=== PATIENT | male | born 1960 | race Caucasian/White ===

== ENCOUNTER 2018-01-02 19:17 | Emergency (ER) | payer BC, MEDICARE ==
[2018-01-02 23:02] LABS: ANION GAP 16.4
--- NOTE | 2018-01-02 23:20 | EDM.PDOC ---
ED HPI GENERAL MEDICAL PROBLEM - General Chief Complaint: General Stated Complaint: GOUT [id number] Time Seen by Provider: 01/02/18 23:15 Source of Information: Reports: Patient History Limitations: Reports: No Limitations - History of Present Illness INITIAL COMMENTS - FREE TEXT/NARRATIVE: just started gout attack this Friday saw PMD and Tx with pred which made him nauseous, states on kidney transplant list and unable to take NSAIDS. has oxy already and can take those. was told my PMD his blood count was low. 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) Right Feet Pain Score (Numeric/FACES): 1 - Related Data Allergies Allergy/AdvReac Type Severity Reaction Status Date / Time No Known Allergies Allergy Verified 01/02/18 20:44 Home Meds: Home Meds Calcitriol 0.25 mg PO DAILY 01/02/18 [History] Famotidine 20 mg PO DAILY 01/02/18 [History] Hydrocodone/Acetaminophen [Hydrocodon-Acetaminophen 5-325] 1 tab PO Q6HR PRN [History] Isosorbide Dinitrate 10 mg PO TID 01/02/18 [History] Levothyroxine 75 mcg PO DAILY 01/02/18 [History] Metoprolol Tartrate 25 mg PO BID 01/02/18 [History] Sennosides/Docusate Sodium [Senna-Docusate Sodium] 1 tab PO DAILY 01/02/18 [ History] amLODIPine [Norvasc] 5 mg PO DAILY 01/02/18 [History] methylPREDNISolone [Methylprednisolone] 4 mg PO DAILY 01/02/18 [History] Past Medical History HEENT History: Reports: None Cardiovascular History: Reports: None Respiratory History: Reports: None Gastrointestinal History: Reports: Cholelithiasis, Chronic Constipation Genitourinary History: Reports: Other (See Below) Other Genitourinary History: polycystic kidney Musculoskeletal History: Reports: None Neurological History: Reports: None Psychiatric History: Reports: None Endocrine/Metabolic History: Reports: Hypothyroidism Hematologic History: Reports: None Immunologic History: Reports: None Oncologic (Cancer) History: Reports: None Dermatologic History: Reports: None - Infectious Disease History Infectious Disease History: Reports: Chicken Pox, Mumps - Past Surgical History GI Surgical History: Reports: Colonoscopy Social & Family History - Family History Family Medical History: Noncontributory - Tobacco Use Smoking Status *Q: Never Smoker Second Hand Smoke Exposure: No - Caffeine Use Caffeine Use: Reports: Soda - Recreational Drug Use Recreational Drug Use: No ED ROS GENERAL - Review of Systems Review Of Systems: ROS reveals no pertinent complaints other than HPI. ED EXAM, GENERAL - Physical Exam Exam: See Below Exam Limited By: No Limitations General Appearance: Alert, WD/WN, Mild Distress, Other (right big toe pain) Ears: Hearing Grossly Normal Throat/Mouth: Normal Voice, No Airway Compromise Head: Atraumatic Neck: Non-Tender, Full Range of Motion Respiratory/Chest: No Respiratory Distress Cardiovascular: Regular Rate, Rhythm GI/Abdominal: Soft, Non-Tender Extremities: Other (right big toe swollen red tender) Neurological: Alert, Oriented, Normal Cognition, Normal Gait, No Motor/Sensory Deficits Psychiatric: Normal Affect, Normal Mood Skin Exam: Warm, Dry, Normal Color Lymphatic: No Adenopathy Course - Vital Signs Last Recorded V/S: Last Vital Signs Temp 37.3 C 01/02/18 22:59 Pulse 76 01/02/18 22:59 Resp 16 01/02/18 22:59 BP 135/86 01/02/18 22:59 Pulse Ox 97 01/02/18 22:59 - Orders/Labs/Meds Labs: Laboratory Tests 01/02/18 01/02/18 Range/Units 22:36 22:36 WBC 16.0 H (5.0-10.0) 10^3/uL RBC 4.64 (4.6-6.2) 10^6/uL Hgb 13.4 L (14.0-18.0) g/dL Hct 39.3 L (40.0-54.0) % MCV 84.7 (80-100) fL MCH 28.9 (27.0-34.0) pg MCHC 34.1 (33.0-35.0) g/dL Plt Count 414 (150-450) 10^3/uL Neut % (Auto) 84.6 H (42.2-75.2) % Lymph % (Auto) 9.1 L (20.5-50.1) % Lipscomb % (Auto) 5.7 (2-8) % Eos % (Auto) 0.3 L (1.0-3.0) % Baso % (Auto) 0.3 (0.0-1.0) % Sodium 137 (135-145) mmol/L Potassium 4.4 (3.6-5.0) mmol/L Chloride 102 (101-111) mmol/L Carbon Dioxide 23.0 (21.0-31.0) mmol/L Anion Gap 16.4 BUN 32 H (7-18) mg/dL Creatinine 4.3 H (0.6-1.3) mg/dL Est Cr Clr Drug Dosing 20.43 mL/min Estimated GFR (MDRD) 14 BUN/Creatinine Ratio 7.44 Glucose 176 H (74-105) mg/dL Calcium 9.6 (8.4-10.2) mg/dl Total Bilirubin 0.7 (0.2-1.0) mg/dL AST 20 (10-42) IU/L ALT 10 (10-60) IU/L Alkaline Phosphatase 68 (42-121) IU/L Total Protein 7.9 (6.7-8.2) g/dl Albumin 4.2 (3.2-5.5) g/dl Globulin 3.7 Albumin/Globulin Ratio 1.14 - Re-Assessments/Exams Free Text/Narrative Re-Assessment/Exam: 01/02/18 23:17 results discussed with pt & spouse Departure - Departure Time of Disposition: 23:18 Disposition: Home, Self-Care 01 Condition: Good Clinical Impression: Gout attack Qualifiers: Gout site: toe Gout etiology: unspecified cause Laterality: right Qualified Code(s): M10.9 - Gout, unspecified - Discharge Information Instructions: Low-Purine Eating Plan Additional Instructions: 1) elevate foot as much as possible 2) try heat pad to area 3) follow up with family doctor or recheck if there is any change or concern
== END 2018-01-02 23:27 | disposition home or self-care (01) ==
LOC: DL.ED 19:17
DX: M10.9 Gout, unspecified (principal); E03.9 Hypothyroidism, unspecified; Z79.899 Other long term (current) drug therapy
CPT/HCPCS: 36415; 80053; 85025; 99283